=== PATIENT | male | born 1965 | race Two or more races ===

== ENCOUNTER 2025-05-23 11:15 | Day surgery (SDC) | payer MEDICAID, SELFPAY ==
[2025-05-23] VITALS (12 sets, daily range): BP systolic 106–168; BP diastolic 79–113; PULSE 79–93; RESP 15–20; TEMP 36.6–36.9; O2SAT 92–98; BMI 30.9
[2025-05-23] MEDS: RINGERS LACTATED 1000 ML 1,000 ML 60 ML IV (12:21)
[2025-05-23] MEDS: ONDANSETRON INJ 2 MG/ML INJ 2 ML 4 MG IV (14:41)
--- NOTE | 2025-05-23 14:57 | SUR.PHASEII ---
1457: Pt. AAOx4, vitals stable, breathing unlabored, no complaint of pain or nausea, no dressing in place, no active bleed noted, report received from Ashly GRIFFIN.
--- NOTE | 2025-05-23 15:30 | SUR.PHASEII ---
1530: Pt. AAOx4, vitals stable, breathing unlabored, no complaint of pain or nausea, no dressing in place, no active bleed noted, pt. tolerated sips of water well., pt. ambulated to wheelchair with steady gait and no assist, no complications. Gave discharge instructions to the pt. and his ride using a environmental projects advisor, both verbalized understanding and had no further questions. Pt. left with all personal belongings.
== END 2025-05-23 15:30 | disposition home or self-care (01) ==
PROVIDERS: Referring Provider Specialist; Visit Provider Specialist
PROC: (CPT 43239; principal; 2025-05-23 13:45)
DX: K21.00 Gastro-esophageal reflux disease with esophagitis, without bleeding (principal); K44.9 Diaphragmatic hernia without obstruction or gangrene
CPT/HCPCS: 43235; A4649; J1200; J2250; J2405; J3010; J7120; A9270